=== PATIENT | female | born 1980 | race African-American/Black ===

== ENCOUNTER 2017-11-25 20:23 | Emergency (ER) | payer OTHER, MEDICARE ==
[~2017-11-25 20:23] MED LIST: IMITREX50 M1 PO; KETOROLAC TROME10 M1 PO; ZEBUTAL 50-3251 EACH PO
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
[2017-11-25 23:15] LABS: ABSOLUTE BASOPHIL COUNT 0 /CUMM (0.0-0.2); ABSOLUTE EOSINOPHIL COUNT 0.1 /CUMM (0.0-0.7); ABSOLUTE GRANULOCYTE CT 5.7 /CUMM (1.4-6.5); ABSOLUTE LYMPH COUNT 2.7 /CUMM (1.2-3.4); ABSOLUTE MONOCYTE COUNT 0.3 /CUMM (0.10-0.60); BASOPHIL % 0.3 % (0.0-2.0); EOSINOPHIL % 0.6 % (0-5); GRANULOCYTE % 64.5 % (42.2-75.2); HEMATOCRIT 42.6 % (37-47); MEAN CORPUSCULAR HGB 29.6 PG (27.0-31.0); MEAN CORPUSCULAR HGB CONC 33.1 G/DL (33.0-37.0); MEAN CORPUSCULAR VOLUME 89.3 FL (81.0-99.0); MEAN PLATELET VOLUME 8.8 FL (7.4-10.4); PLATELET COUNT 277 /CUMM (130-400); RBC DISTRIBUTION WIDTH 13.5 % (11.5-14.5); RED BLOOD CELL CT 4.77 /CUMM (4.20-5.40); WHITE BLOOD CELL COUNT 8.8 /CUMM (4.8-10.8)
--- NOTE | 2017-11-26 00:29 | CT SCAN REPORT ---
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 DLP: 605.26 mGy-cm FINDINGS: There is no evidence of acute intracranial hemorrhage or territorial infarction. No abnormal mass effect or midline shift is seen. Rodriguez to white matter differentiation is well preserved. No extra-axial fluid collections are identified. The ventricles are normal in size. There is no abnormal attenuation within the brain parenchyma. The osseous structures and soft tissues are normal. The mastoid air cells and visualized portions of the paranasal sinuses are well aerated. IMPRESSION: No acute intracranial pathology.
[2017-11-26] MEDS ORDERED: CLEOCIN HCL300 M1 PO ×2 (00:50→01:04)
[2017-11-26] MEDS ORDERED: PERCOCET 5-3251 EACH PO (01:04)
[2017-11-26 02:23] VITALS: BP 148/89
== END 2017-11-26 03:13 ==
LOC: ERH 20:23
PROVIDERS: Physician Assistant Medical
DX: R51 Headache (principal); K11.8 Other diseases of salivary glands; M62.81 Muscle weakness (generalized); E11.9 Type 2 diabetes mellitus without complications
CPT/HCPCS: 81001; 93005; 93010